=== PATIENT | female | born 1940 | race Caucasian/White ===

== ENCOUNTER → 2017-07-18 | Outpatient (CLI) | payer MEDICARE ==
--- NOTE | 2017-07-18 12:03 | REP ---
Duplex extremity venous ultrasound: Left lower extremity. History: Pain and swelling in the left leg. Question DVT. Findings: The deep veins are anechoic and fully compressible from the groin to the popliteal fossa in the left lower extremity. Color flow imaging is homogeneous. Spectral Doppler interrogation demonstrates intact respiratory variation in flow and normal manual augmentation of flow. There is no evidence of deep vein thrombosis. Impression: Negative left lower extremity duplex venous ultrasound. No evidence of deep vein thrombosis. Signed by Sergei Bazan MD 07/18/2017 11:55 A
== END ==
LOC: M RAD 11:23
PROVIDERS: ATTEND Family Medicine
DX: M79.662 Pain in left lower leg (principal); M79.89 Other specified soft tissue disorders

== ENCOUNTER → 2018-01-30 | Outpatient (CLI) | payer MEDICARE ==
[2018-01-30 09:48] LABS: HEMATOCRIT 41.2 % (36.0-47.0); HEMOGLOBIN 13.5 g/dl (12.0-16.0); MEAN CORPUSCULAR HEMOGLOBIN 30.8 pg (27.0-33.0); MEAN CORPUSCULAR HGB CONC 32.8 g/dl (32.0-36.5); MEAN CORPUSCULAR VOLUME 93.8 fl (80.0-96.0); PLATELET COUNT, AUTOMATED 202 10^3/uL (150-450); RED BLOOD COUNT 4.39 10^6/uL (4.00-5.40); RED CELL DISTRIBUTION WIDTH 12.4 % (11.5-14.5); WHITE BLOOD COUNT 5.2 10^3/uL (4.0-10.0)
[2018-01-30 09:52] LABS: APPEARANCE, URINE TURBID (CLEAR); BACTERIA, URINE AUTO 3+ (NEGATIVE); BILIRUBIN, URINE AUTO NEGATIVE (NEGATIVE); BLOOD, URINE BLOOD 3+ (NEGATIVE); COLOR, URINE YELLOW (YELLOW); GLUCOSE, URINE (UA) AUTO NEGATIVE (NEGATIVE); KETONE, URINE AUTO NEGATIVE (NEGATIVE); LEUKOCYTE ESTERASE, URINE AUTO 3+ (NEGATIVE); NITRITE, URINE AUTO NEGATIVE (NEGATIVE); PROTEIN, URINE AUTO 2+ mg/dL (NEGATIVE); RBC, URINE AUTO 182 /HPF (0-3); SPECIFIC GRAVITY URINE AUTO 1.005 (1.002-1.035); SQUAMOUS EPITHELIAL CELL UR AU 0 /HPF (0-6); UROBILINOGEN, URINE AUTO 0.2 mg/dL (0.0-2.0); WBC, URINE AUTO TNTC /HPF (0-3)
[2018-01-30 10:12] LABS: ESTIMATED AVERAGE GLUCOSE 126 MG/DL (60-110)
[2018-01-30 10:37] LABS: ALBUMIN 3.6 GM/DL (3.2-5.2); ALKALINE PHOSPHATASE 65 U/L (45-117); ALT/SGPT 20 U/L (12-78); ANION GAP 9 MEQ/L (8-16); AST/SGOT 12 U/L (7-37); BILIRUBIN,TOTAL 0.5 MG/DL (0.2-1.0); BLOOD UREA NITROGEN 16 MG/DL (7-18); CARBON DIOXIDE LEVEL 26 MEQ/L (21-32); CHLORIDE LEVEL 109 MEQ/L (98-107); CHOLESTEROL LEVEL 163 MG/DL (<200); CREATININE FOR GFR 0.93 MG/DL (0.55-1.30); GLOMERULAR FILTRATION RATE > 60.0 (>39); GLUCOSE, FASTING 109 MG/DL (70-100); HDL CHOLESTEROL 50 MG/DL (>40); LDL CHOLESTEROL 72.2 MG/DL (<100); NON-HDL-C 113 MG/DL; POTASSIUM SERUM 4.4 MEQ/L (3.5-5.1); SODIUM LEVEL 144 MEQ/L (136-145); TOTAL PROTEIN 6.6 GM/DL (6.4-8.2); TRIGLYCERIDES LEVEL 204 MG/DL (<150)
[2018-01-30 10:52] LABS: TOTAL 25(OH) VITAMIN D 24.1 NG/ML (30.0-100.0)
== END ==
LOC: M LAB 09:03
DX: D64.9 Anemia, unspecified (principal); R53.83 Other fatigue; E03.9 Hypothyroidism, unspecified
CPT/HCPCS: 84443

== ENCOUNTER → 2018-05-04 | Outpatient (CLI) | payer MEDICARE ==
[2018-05-04 09:08] LABS: HEMATOCRIT 41.2 % (36.0-47.0); HEMOGLOBIN 13.6 g/dl (12.0-15.5); MEAN CORPUSCULAR HEMOGLOBIN 31.1 pg (27.0-33.0); MEAN CORPUSCULAR VOLUME 94.1 fl (80.0-96.0); PLATELET COUNT, AUTOMATED 203 10^3/uL (150-450); RED BLOOD COUNT 4.38 10^6/uL (4.00-5.40); RED CELL DISTRIBUTION WIDTH 12.1 % (11.5-14.5); WHITE BLOOD COUNT 4.8 10^3/uL (4.0-10.0)
[2018-05-04 09:28] LABS: INR 0.96; PROTHROMBIN TIME 12.9 SECONDS (12.4-14.5)
[2018-05-04 09:35] LABS: ALBUMIN 3.4 GM/DL (3.2-5.2); ALBUMIN/GLOBULIN RATIO 0.97 (1.00-1.93); ALKALINE PHOSPHATASE 64 U/L (45-117); ALT/SGPT 23 U/L (12-78); ANION GAP 10 MEQ/L (8-16); AST/SGOT 12 U/L (7-37); BILIRUBIN,TOTAL 0.4 MG/DL (0.2-1.0); BLOOD UREA NITROGEN 22 MG/DL (7-18); CALCIUM LEVEL 8.9 MG/DL (8.8-10.2); CARBON DIOXIDE LEVEL 26 MEQ/L (21-32); CHLORIDE LEVEL 109 MEQ/L (98-107); CHOLESTEROL LEVEL 151 MG/DL (<200); CHOLESTEROL RISK RATIO 2.696 (<5); CREATININE FOR GFR 0.98 MG/DL (0.55-1.30); GLOMERULAR FILTRATION RATE 58.4 (>39); GLUCOSE, FASTING 116 MG/DL (70-100); HDL CHOLESTEROL 56 MG/DL (>40); LDL CHOLESTEROL 59.6 MG/DL (<100); NON-HDL-C 95 MG/DL; POTASSIUM SERUM 4.3 MEQ/L (3.5-5.1); SODIUM LEVEL 145 MEQ/L (136-145); TOTAL PROTEIN 6.9 GM/DL (6.4-8.2); TRIGLYCERIDES LEVEL 177 MG/DL (<150)
[2018-05-04 10:15] LABS: ESTIMATED AVERAGE GLUCOSE 120 MG/DL (60-110); HEMOGLOBIN A1c 5.8 %
== END ==
LOC: M LAB 08:10
DX: Z01.818 Encounter for other preprocedural examination (principal); I10 Essential (primary) hypertension; E11.9 Type 2 diabetes mellitus without complications; Z79.01 Long term (current) use of anticoagulants
CPT/HCPCS: 71046

== ENCOUNTER → 2018-09-03 | Outpatient (CLI) | payer MEDICARE ==
[2018-09-03 10:38] LABS: HEMATOCRIT 39.6 % (36.0-47.0); HEMOGLOBIN 13.2 g/dl (12.0-15.5); MEAN CORPUSCULAR HEMOGLOBIN 31.7 pg (27.0-33.0); MEAN CORPUSCULAR HGB CONC 33.3 g/dl (32.0-36.5); PLATELET COUNT, AUTOMATED 206 10^3/uL (150-450); RED BLOOD COUNT 4.17 10^6/uL (4.00-5.40); RED CELL DISTRIBUTION WIDTH 12.7 % (11.5-14.5); WHITE BLOOD COUNT 5.1 10^3/uL (4.0-10.0)
[2018-09-03 10:52] LABS: INR 1.02; PROTHROMBIN TIME 13.5 SECONDS (12.1-14.4)
[2018-09-03 11:03] LABS: ESTIMATED AVERAGE GLUCOSE 123 MG/DL (60-110); HEMOGLOBIN A1c 5.9 %
[2018-09-03 11:17] LABS: ALBUMIN 3.3 GM/DL (3.2-5.2); ALBUMIN/GLOBULIN RATIO 1.06 (1.00-1.93); ALKALINE PHOSPHATASE 60 U/L (45-117); ALT/SGPT 21 U/L (12-78); ANION GAP 7 MEQ/L (8-16); AST/SGOT 11 U/L (7-37); BILIRUBIN,TOTAL 0.4 MG/DL (0.2-1.0); BLOOD UREA NITROGEN 12 MG/DL (7-18); CALCIUM LEVEL 9.1 MG/DL (8.8-10.2); CARBON DIOXIDE LEVEL 28 MEQ/L (21-32); CHLORIDE LEVEL 109 MEQ/L (98-107); CHOLESTEROL LEVEL 150 MG/DL (<200); CREATININE FOR GFR 0.91 MG/DL (0.55-1.30); GLOMERULAR FILTRATION RATE > 60.0 (>39); GLUCOSE, FASTING 120 MG/DL (70-100); HDL CHOLESTEROL 46 MG/DL (>40); LDL CHOLESTEROL 52 MG/DL (<100); NON-HDL-C 104 MG/DL; POTASSIUM SERUM 4.3 MEQ/L (3.5-5.1); SODIUM LEVEL 144 MEQ/L (136-145); TOTAL PROTEIN 6.4 GM/DL (6.4-8.2); TRIGLYCERIDES LEVEL 259 MG/DL (<150)
== END ==
LOC: M LAB 10:04
DX: Z01.818 Encounter for other preprocedural examination (principal); E11.9 Type 2 diabetes mellitus without complications; I10 Essential (primary) hypertension; R94.31 Abnormal electrocardiogram [ECG] [EKG]; Z79.01 Long term (current) use of anticoagulants
CPT/HCPCS: 71046

== ENCOUNTER → 2018-10-17 | Outpatient (CLI) | payer MEDICARE ==
[2018-10-17 10:36] LABS: HEMATOCRIT 40.6 % (36.0-47.0); MEAN CORPUSCULAR VOLUME 96.7 fl (80.0-96.0); PLATELET COUNT, AUTOMATED 208 10^3/uL (150-450); RED CELL DISTRIBUTION WIDTH 12.7 % (11.5-14.5)
[2018-10-17 10:48] LABS: INR 0.98; PROTHROMBIN TIME 13.1 SECONDS (12.1-14.4)
[2018-10-17 11:17] LABS: ALBUMIN 3.3 GM/DL (3.2-5.2); ALBUMIN/GLOBULIN RATIO 0.94 (1.00-1.93); ALKALINE PHOSPHATASE 65 U/L (45-117); ALT/SGPT 26 U/L (12-78); ANION GAP 7 MEQ/L (8-16); AST/SGOT 15 U/L (7-37); BILIRUBIN,TOTAL 0.4 MG/DL (0.2-1.0); BLOOD UREA NITROGEN 17 MG/DL (7-18); CALCIUM LEVEL 9.2 MG/DL (8.8-10.2); CARBON DIOXIDE LEVEL 28 MEQ/L (21-32); CHLORIDE LEVEL 108 MEQ/L (98-107); CHOLESTEROL LEVEL 170 MG/DL (<200); CHOLESTEROL RISK RATIO 3.269 (<5); CREATININE FOR GFR 0.96 MG/DL (0.55-1.30); GLOMERULAR FILTRATION RATE 59.7 (>39); GLUCOSE, FASTING 128 MG/DL (70-100); HDL CHOLESTEROL 52 MG/DL (>40); LDL CHOLESTEROL 79 MG/DL (<100); NON-HDL-C 118 MG/DL; SODIUM LEVEL 143 MEQ/L (136-145); TOTAL PROTEIN 6.8 GM/DL (6.4-8.2); TRIGLYCERIDES LEVEL 196 MG/DL (<150)
[2018-10-17 11:25] LABS: ESTIMATED AVERAGE GLUCOSE 128 MG/DL (60-110); HEMOGLOBIN A1c 6.1 %
== END ==
LOC: M LAB 09:11
DX: Z01.818 Encounter for other preprocedural examination (principal); I10 Essential (primary) hypertension; E11.9 Type 2 diabetes mellitus without complications; R94.31 Abnormal electrocardiogram [ECG] [EKG]
CPT/HCPCS: 71046

== ENCOUNTER → 2021-01-15 | Outpatient (CLI) | payer MEDICARE ==
[~2021-01-15] MED LIST: ISOVUE-370 76% 100ML VIAL As Ordered ONE
--- NOTE | 2021-01-19 13:29 | REP ---
INDICATION: MALIGNANT NEOPLASM OF BLADDER, UNSPECIFIED. COMPARISON: 05/11/2019, [facility]. TECHNIQUE: CT chest performed following the intravenous administration of 100 cc of Isovue 370. Sagittal and coronal reconstruction images are performed. FINDINGS: Lungs: Clear, no infiltrate or nodule. Once again there is scattered interstitial fibrotic scarring, mild pleural thickening and scattered blebs, stable. Mediastinum: No adenopathy. Ladi: No adenopathy. Axilla: No adenopathy. Pleura: No effusion. Heart: Not enlarged, upper limits of normal in size.. Thoracic aorta: No aneurysm or dissection. There are scattered atherosclerotic calcifications. Visualized osseous structures: There are degenerative changes of the spine without compression deformity. IMPRESSION: No suspicious pulmonary nodule. No acute infiltrate. Chronic fibrotic changes. <Electronically signed by Saurabh Whitlock > 01/19/21 [id number]
--- NOTE | 2021-01-19 13:42 | REP ---
INDICATION: MALIGNANT NEOPLASM OF BLADDER, UNSPECIFIED COMPARISON: 06/16/2020 as well as other prior exams. TECHNIQUE: CT Scan of the abdomen and pelvis was performed with intravenous administration of 100 cc of Isovue 370, and oral contrast. FINDINGS: Lung bases: There is a small hiatal hernia. Liver: There is a stable cystic structure inferiorly in the posterior segment of the right lobe, measuring 1.5 cm in maximum diameter. Gallbladder: Unremarkable. Spleen: Normal. Adrenals: Normal. Pancreas: Normal. Kidneys: Normal. There is no hydroureteronephrosis. Small and large bowel: There is sigmoid diverticulosis without acute diverticulitis.. Free fluid: None. Abdominal aorta: No aneurysm or dissection. Adenopathy: None. Appendix: Not inflamed. Osseous structures: There are degenerative changes of the spine without compression deformity.. Pelvis: No mass. There has been prior cystectomy and hysterectomy. 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 IMPRESSION: Postsurgical changes with no new mass or adenopathy. No change since prior study. <Electronically signed by Saurabh Whitlock > 01/19/21 [id number]
== END ==
LOC: M RAD 16:16
PROVIDERS: ATTEND Urology
DX: C67.9 Malignant neoplasm of bladder, unspecified (principal)
CPT/HCPCS: 71260; 74177; Q9967

== ENCOUNTER → 2021-05-12 | Outpatient (CLI) | payer MEDICARE ==
[~2021-05-12] MED LIST changes: +GASTROGRAFIN SOLUTION 30ML (Q9963) As Ordered ONE; -ISOVUE-370 76% 100ML VIAL As Ordered ONE
--- NOTE | 2021-05-12 15:41 | REP ---
INDICATION: ENTEROCOLITIS D/T CLOSTRIDIUM DIFFICILE. COMPARISON: 01/15/2021 latest prior TECHNIQUE: Limited noncontrast enhanced standard helical technique after the administration of oral bowel preparatory contrast only. FINDINGS: There is no significant change in appearance of the lung bases. Limited evaluation of the solid intraabdominal organs and gallbladder show no gross abnormalities or significant changes from the prior exam. Limited evaluation of the pancreas, adrenal glands, and kidneys show no gross abnormalities or significant changes from the prior exam. Limited evaluation of the abdominal aorta and para-aortic regions show no gross abnormalities or significant changes from the prior exam. There is no free fluid or free air. There is no mass or adenopathy. The bowel loops and the mesenteries have not changed significantly compared to the prior exam. No gross abnormality is noted. Note is again made of an ileal conduit on the right status quo. Bone window technique throughout the exam shows stable appearing chronic osseous changes. IMPRESSION: No evidence of acute disease or significant change compared to the prior exam with findings as described above. <Electronically signed by Faustino Romero > 05/12/21 [id number]
== END ==
LOC: M RAD 13:23
PROVIDERS: ATTEND Family Medicine
DX: A04.72 Enterocolitis due to Clostridium difficile, not specified as recurrent (principal)
CPT/HCPCS: 74176; Q9963

== ENCOUNTER → 2021-07-13 | Outpatient (CLI) | payer MEDICARE ==
[2021-07-13 17:15] LABS: HEMATOCRIT 35.3 % (36.0-47.0); HEMOGLOBIN 11.3 g/dl (12.0-15.5); PLATELET COUNT, AUTOMATED 212 10^3/uL (150-450); RED BLOOD COUNT 3.64 10^6/uL (4.00-5.40); WHITE BLOOD COUNT 5.9 10^3/uL (4.0-10.0)
[2021-07-13 17:29] LABS: ALBUMIN 3.7 GM/DL (3.2-5.2); BILIRUBIN,TOTAL 0.2 MG/DL (0.2-1.0); CALCIUM LEVEL 9.9 MG/DL (8.8-10.2); CREATININE FOR GFR 1.66 MG/DL (0.55-1.30); GLOMERULAR FILTRATION RATE 31.6 (>32); TOTAL PROTEIN 7.5 GM/DL (6.4-8.2)
== END ==
LOC: M LAB 15:23
PROVIDERS: ATTEND Urology
DX: C67.9 Malignant neoplasm of bladder, unspecified (principal)

== ENCOUNTER → 2021-07-19 | Outpatient (CLI) | payer MEDICARE ==
[~2021-07-19] MED LIST changes: -GASTROGRAFIN SOLUTION 30ML (Q9963) As Ordered ONE; +ISOVUE-370 76% 100ML VIAL As Ordered ONE
--- NOTE | 2021-07-19 17:54 | REP ---
INDICATION: BLADDER CA. COMPARISON: 01/15/2021. TECHNIQUE: CT chest performed following the intravenous administration of 100 cc of Isovue 370. Sagittal and coronal reconstruction images are performed. FINDINGS: Lungs: Clear, no infiltrate or nodule. Mediastinum: No adenopathy. Ladi: No adenopathy. Axilla: No adenopathy. Pleura: No effusion. Heart: Not enlarged. Thoracic aorta: No aneurysm or dissection. Visualized osseous structures: There are degenerative changes of the spine without compression deformity. IMPRESSION: Unremarkable CT chest. <Electronically signed by Saurabh Whitlock > 07/19/21 [id number]
--- NOTE | 2021-07-19 18:26 | REP ---
INDICATION: BLADDER CA COMPARISON: 05/12/2021. TECHNIQUE: CT Scan of the abdomen and pelvis was performed with intravenous administration of 100 cc of Isovue 370, and oral contrast. Sagittal and coronal reconstruction images are performed. FINDINGS: Lung bases: There is a small hiatal hernia. Liver: There is a stable cystic structure inferiorly in the right lobe of the liver. Gallbladder: Unremarkable. Spleen: Normal. Adrenals: Normal. Pancreas: Normal. Kidneys: Normal. Right ileal conduit is unchanged in appearance. There is no hydroureteronephrosis. Small and large bowel: There is sigmoid diverticulosis without acute diverticulitis. Free fluid: None. Abdominal aorta: No aneurysm or dissection. Adenopathy: There is no periaortic adenopathy. Appendix: Not inflamed. Osseous structures: There are degenerative changes of the spine without compression deformity. Pelvis: There is an oval bilobed right pelvic mass measuring 3.9 x 2.3 x 2.3 cm.. There has been prior cystectomy and hysterectomy. IMPRESSION: Oval bilobed right pelvic mass measuring 3.9 x 2.3 x 2.3 cm. This is suspicious for tumor recurrence. <Electronically signed by Saurabh Whitlock > 07/19/21 [id number]
== END ==
LOC: M RAD 15:57
PROVIDERS: ATTEND Urology
DX: R19.09 Other intra-abdominal and pelvic swelling, mass and lump (principal); K44.9 Diaphragmatic hernia without obstruction or gangrene; K76.89 Other specified diseases of liver; K57.92 Diverticulitis of intestine, part unspecified, without perforation or abscess without bleeding; Z90.710 Acquired absence of both cervix and uterus; Z90.6 Acquired absence of other parts of urinary tract
CPT/HCPCS: 71260; 74177; Q9967

== ENCOUNTER → 2021-08-18 | Outpatient (CLI) | payer MEDICARE ==
[~2021-08-18] MED LIST changes: -ISOVUE-370 76% 100ML VIAL As Ordered ONE; +PROHANCE 279.3MG/ML 5ML VIAL ONE
--- NOTE | 2021-08-18 15:45 | REP ---
INDICATION: BLADDER CA. Pelvic mass. Most recent CT reported a 3.9 x 2.3 x 2.3 cm bilobed right pelvic mass. COMPARISON: Comparison CT study abdomen and pelvis July 19, 2021. TECHNIQUE: Axial, sagittal, and coronal imaging planes are included. T1 and T2 weighted sequences include spin echo, fast spin echo, inversion recovery sequences and post gadolinium enhanced images. Gadolinium enhancement dose is 8 mL of intravenous ProHance. FINDINGS: Cortical and medullary bone signal intensity are normal in the pelvis. There is no evidence of ascites. The urinary bladder and the uterus is surgically absent. I am not aware of the surgical history guarding the ovaries. No left ovary can be seen. The 3.9 cm bilobed appearing mass seen in the pelvis on recent CT study is seen by MR. It appears to be cystic displaying relatively low T1 and high T2 signal intensity. There is a fluid fluid level in the posterior portion of the largest component of this lesion suggesting proteinaceous contents. There is contrast enhancement in the margin of this bilobed appearing lesion. this measures 3.4 cm in craniocaudal span by 2.0 cm right to left by 1.6 cm anterior to posterior. No other mass or adenopathy is appreciated. A portion of the right lower quadrant ileostomy is seen at the top of the imaging field of view. There is sigmoid colon diverticulosis without MR evidence of diverticulitis. IMPRESSION: There is a small complex cystic lesion in the right pelvis adjacent to bowel loop and along the internal iliac vessels. Possibilities include necrotic malignant adenopathy and residual ovarian cyst tissue with follicle cyst formation. <Electronically signed by Juan Bazan > 08/18/21 [id number]
== END ==
LOC: M PLAIMG 12:17
PROVIDERS: ATTEND Urology
DX: R19.00 Intra-abdominal and pelvic swelling, mass and lump, unspecified site (principal)
CPT/HCPCS: 72197; A9576

== ENCOUNTER → 2022-06-07 | Outpatient (CLI) | payer MEDICARE ==
[2022-06-07 11:25] LABS: CREATININE FOR GFR 1.55 MG/DL (0.55-1.30); GLOMERULAR FILTRATION RATE 34.1 (>32)
== END ==
LOC: M LAB 10:39
PROVIDERS: ATTEND Physician Assistant
DX: C67.9 Malignant neoplasm of bladder, unspecified (principal)

== ENCOUNTER → 2022-06-10 | Outpatient (CLI) | payer MEDICARE ==
[~2022-06-10] MED LIST changes: +GASTROGRAFIN SOLUTION 30ML (Q9963) As Ordered ONE; +ISOVUE-370 76% 100ML VIAL As Ordered ONE; -PROHANCE 279.3MG/ML 5ML VIAL ONE
== END ==
LOC: M RAD 12:24
DX: C67.9 Malignant neoplasm of bladder, unspecified (principal); Z90.6 Acquired absence of other parts of urinary tract; R93.2 Abnormal findings on diagnostic imaging of liver and biliary tract; M41.25 Other idiopathic scoliosis, thoracolumbar region; M41.26 Other idiopathic scoliosis, lumbar region; I70.0 Atherosclerosis of aorta; K44.9 Diaphragmatic hernia without obstruction or gangrene; D73.4 Cyst of spleen; Z98.0 Intestinal bypass and anastomosis status; Z93.6 Other artificial openings of urinary tract status; Z93.3 Colostomy status
CPT/HCPCS: 74177; Q9963; Q9967

== ENCOUNTER → 2022-11-28 | Outpatient (CLI) | payer MEDICARE ==
[2022-11-28 15:29] LABS: CREATININE FOR GFR 1.68 MG/DL (0.55-1.30)
== END ==
LOC: M LAB 14:18
PROVIDERS: ATTEND Physician Assistant
DX: C67.9 Malignant neoplasm of bladder, unspecified (principal)

== ENCOUNTER → 2022-12-02 | Outpatient (CLI) | payer MEDICARE ==
[~2022-12-02] MED LIST changes: -GASTROGRAFIN SOLUTION 30ML (Q9963) As Ordered ONE; +GASTROGRAFIN SOLUTION 30ML As Ordered ONE
== END ==
LOC: M RAD 13:16
DX: C67.9 Malignant neoplasm of bladder, unspecified (principal)
CPT/HCPCS: 74177; Q9963; Q9967

== ENCOUNTER 2023-01-06 09:42 | Emergency (ER) | payer MEDICARE ==
[~2023-01-06] VITALS: Ht 170.2 cm; Wt 58.0 kg
[2023-01-06] MEDS ORDERED: ATOR1TAB21 (09:59)
[2023-01-06] MEDS ORDERED: LISI20TA33 (09:59)
[2023-01-06] MEDS ORDERED: OMEG100011 (09:59)
[2023-01-06] MEDS ORDERED: DOCU100C16 (09:59)
[2023-01-06] MEDS ORDERED: METO1TAB87 (09:59)
[2023-01-06] MEDS ORDERED: SODI650T (09:59)
[2023-01-06] MEDS ORDERED: LATA0.0015 (09:59)
[2023-01-06] MEDS ORDERED: FURO40TA2 (09:59)
[2023-01-06] MEDS ORDERED: IRON65TA2 (09:59)
[2023-01-06] MEDS ORDERED: FAMO20TA5 (09:59)
[2023-01-06] MEDS ORDERED: CALC1CAP31 (09:59)
[2023-01-06] MEDS ORDERED: LEVO100T5 (09:59)
[2023-01-06] MEDS ORDERED: NS 1,000 ML IV ONE (11:25)
[2023-01-06] MEDS ORDERED: ACETAMINOPHEN TAB 650MG DOSE (2X325MG) PO ONE (11:25)
[2023-01-06 13:01] LABS: BILIRUBIN,DIRECT 0.2 MG/DL (<0.4); BILIRUBIN,TOTAL 0.6 MG/DL (0.3-1.2); CREATININE FOR GFR 2.28 MG/DL (0.55-1.30); GLOMERULAR FILTRATION RATE 21.8 (>32); POTASSIUM SERUM 4.4 MMOL/L (3.5-5.1); TOTAL PROTEIN 6.7 G/DL (5.7-8.2)
[2023-01-06 13:22] LABS: BASO % 0.4 % (0.0-1.0); EOS % 0.1 % (0.0-3.0); HEMATOCRIT 27.3 % (36.0-47.0); HEMOGLOBIN 8.9 g/dl (12.0-15.5); LYMPH % 10.1 % (24.0-44.0); MEAN CORPUSCULAR HEMOGLOBIN 30.8 pg (27.0-33.0); MEAN CORPUSCULAR HGB CONC 32.6 g/dl (32.0-36.5); MEAN CORPUSCULAR VOLUME 94.5 fl (80.0-96.0); MONO # 0.7 10^3/uL (0.0-0.8); NEUTROPHILS # 7.9 10^3/uL (1.5-8.5); NEUTROPHILS % 81.8 % (36.0-66.0); PLATELET COUNT, AUTOMATED 159 10^3/uL (150-450); RED BLOOD COUNT 2.89 10^6/uL (4.00-5.40); WHITE BLOOD COUNT 9.7 10^3/uL (4.0-10.0)
[2023-01-06] MEDS ORDERED: cefTRIAXone SOD 1 GM in D5W MINI-BAG PLUS 50 ML IV ONE (14:00)
[2023-01-06] MEDS ORDERED: CEPH500C PO (14:58)
[2023-01-06 15:00] VITALS: BP 113/54
[2023-01-06] MEDS ORDERED: SODIUM CHLORIDE 0.9% INJ 10 ML SYR IV PRN (15:00)
== END 2023-01-06 15:31 | disposition home or self-care (01) ==
LOC: M ED 09:42
DX: N39.0 Urinary tract infection, site not specified (principal); I51.9 Heart disease, unspecified; I10 Essential (primary) hypertension; E07.9 Disorder of thyroid, unspecified; Z85.51 Personal history of malignant neoplasm of bladder; Z88.5 Allergy status to narcotic agent; Z91.89 Other specified personal risk factors, not elsewhere classified
CPT/HCPCS: 71045; 80048; 80076; 81001; 83605; 85025; 87040; 87086; 87486; 87581; 87633; 87798; 93041; 94760; 96361; 96365; 99284; J0696

== ENCOUNTER → 2023-01-30 | Outpatient (CLI) | payer MEDICARE ==
[~2023-01-30] MED LIST changes: +ATOR1TAB21; +CALC1CAP31; +CEPH500C PO; +DOCU100C16; +FAMO20TA5; +FURO40TA2; -GASTROGRAFIN SOLUTION 30ML As Ordered ONE; +IRON65TA2; -ISOVUE-370 76% 100ML VIAL As Ordered ONE; +LATA0.0015; +LEVO100T5; +LISI20TA33; +METO1TAB87; +OMEG100011; +SODI650T
== END ==
LOC: M PLARAD 09:55
DX: C67.9 Malignant neoplasm of bladder, unspecified (principal); N13.30 Unspecified hydronephrosis
CPT/HCPCS: 78815; A9552

== ENCOUNTER → 2023-02-15 | Outpatient (CLI) | payer MEDICARE | LOC: M RAD 15:32 | PROVIDERS: ATTEND Physician Assistant | DX: C67.9 Malignant neoplasm of bladder, unspecified (principal); N13.30 Unspecified hydronephrosis ==

== ENCOUNTER 2023-05-12 20:55 | Inpatient (IN) | payer MEDICARE ==
[~2023-05-12] VITALS: Ht 167.6 cm; Wt 87.9 kg
[~2023-05-12 20:55] MED LIST changes: -ATOR1TAB21; +ATOR1TAB21 PO; -CALC1CAP31; +CALC1CAP31 PO; -FAMO20TA5; +FAMO20TA5 PO; -FURO40TA2; +FURO40TA2 PO; -LEVO100T5; +LEVO100T5 PO; -LISI20TA33; +LISI20TA33 PO; -METO1TAB87; +METO1TAB87 PO; -SODI650T; +SODI650T PO
[2023-05-12] MEDS ORDERED: INSULIN LISPRO (NovoLOG) PER UNIT SC SCH (21:00)
[2023-05-12 21:41] VITALS: BP 104/55; TEMP 97.6; O2SAT 98
[2023-05-12] MEDS ORDERED: DEXTROSE 50% 50ML SYRINGE IV PRN (22:15)
[2023-05-12] MEDS ORDERED: GLUCOSE 4GM CHEW TABLET PO PRN (22:15)
[2023-05-12] MEDS ORDERED: GLUCAGON INJ 1MG VIAL SC PRN (22:15)
[2023-05-12 22:48] LABS: HEMATOCRIT 27.6 % (36.0-47.0); MEAN CORPUSCULAR HEMOGLOBIN 30.9 pg (27.0-33.0); MEAN CORPUSCULAR HGB CONC 32.6 g/dl (32.0-36.5); MEAN CORPUSCULAR VOLUME 94.8 fl (80.0-96.0); PLATELET COUNT, AUTOMATED 142 10^3/uL (150-450); RED BLOOD COUNT 2.91 10^6/uL (4.00-5.40); WHITE BLOOD COUNT 4.2 10^3/uL (4.0-10.0)
[2023-05-12] MEDS ORDERED: NS 500 ML IV SCH (23:05)
[2023-05-12 23:10] VITALS: BP 144/63; TEMP 97.2; O2SAT 98
[2023-05-12 23:24] LABS: CPK CREATINE PHOSPHOKINASE 54 U/L (34-145)
[2023-05-12 23:35] LABS: ALBUMIN 3.2 G/DL (3.2-5.2); ALKALINE PHOSPHATASE 84 U/L (46-116); ALT/SGPT 16 U/L (7.0-40); AST/SGOT < 8 U/L (<34); BILIRUBIN,TOTAL 0.3 MG/DL (0.3-1.2); BLOOD UREA NITROGEN 89 MG/DL (9-23); CARBON DIOXIDE LEVEL 11 MMOL/L (20-31); CHLORIDE LEVEL 121 MMOL/L (98-107); CREATININE FOR GFR 2.16 MG/DL (0.55-1.30); GLOMERULAR FILTRATION RATE 23.2 (>32); GLUCOSE, FASTING 95 MG/DL (74-106); MB/CK RELATIVE INDEX 5.55 (< OR =4); POTASSIUM SERUM 4.8 MMOL/L (3.5-5.1); SODIUM LEVEL 141 MMOL/L (136-145)
[2023-05-12 23:51] LABS: CALCIUM LEVEL 9.2 MG/DL (8.3-10.6)
[2023-05-13] MEDS ORDERED: ACETAMINOPHEN TAB 650MG DOSE (2X325MG) PO ONE (00:05)
[2023-05-13 00:24] LABS: ABG BASE EXCESS -16.2 (-2.0-2.0); ABG HCO3 9.8 MMOL/L (22.0-26.0); ABG O2 SATURATION 97.8 % (95.0-99.0); ABG PARTIAL PRESSURE CO2 24.5 mmHg (35.0-45.0); ABG PARTIAL PRESSURE O2 123.1 mmHg (75.0-100.0); ABG TOTAL CO2 10.6 MMOL/L (23.0-31.0)
[2023-05-13 00:25] LABS: ABG pH (ARTERIAL) 7.222 UNITS (7.350-7.450)
[2023-05-13 00:30] LABS: CREATININE,RANDOM URINE 64.5 MG/DL
[2023-05-13] MEDS: SODIUM BICARBONATE 150 MEQ in D5W 1,000 ML IV SCH ×2 (00:49→15:52)
[2023-05-13] MEDS ORDERED: XALA0.007 OU (02:09)
[2023-05-13] MEDS ORDERED: HOME MED LIST COMPLETE! XX SCH (02:10)
[2023-05-13] MEDS ORDERED: MIRT-10 PO (02:10)
[2023-05-13 03:08] VITALS: BP 121/56; TEMP 97; O2SAT 98
[2023-05-13 05:13] LABS: HEMATOCRIT 28.4 % (36.0-47.0); HEMOGLOBIN 9.1 g/dl (12.0-15.5)
[2023-05-13 05:38] LABS: BLOOD UREA NITROGEN 88 MG/DL (9-23); CALCIUM LEVEL 9.4 MG/DL (8.3-10.6); CARBON DIOXIDE LEVEL 13 MMOL/L (20-31); CHLORIDE LEVEL 120 MMOL/L (98-107); CREATININE FOR GFR 2.12 MG/DL (0.55-1.30); GLOMERULAR FILTRATION RATE 23.7 (>32); GLUCOSE, FASTING 98 MG/DL (74-106); POTASSIUM SERUM 4.8 MMOL/L (3.5-5.1); SODIUM LEVEL 142 MMOL/L (136-145)
[2023-05-13] MEDS: LEVOTHYROXINE 100MCG TABLET (0.1MG) PO SCH (05:38)
[2023-05-13 05:41] LABS: FERRITIN 225.7 NG/ML (7.3-270.7)
[2023-05-13] MEDS ORDERED: INSULIN LISPRO (NovoLOG) PER UNIT SC SCH (07:30)
[2023-05-13 07:37] VITALS: BP 133/60; TEMP 97.8; O2SAT 98
[2023-05-13] MEDS: HEPARIN SOD (PORCINE) 5000UNITS/ML 1ML VIAL/SYRINGE SQ SCH ×2 (08:37→21:06)
[2023-05-13] MEDS: ATORVASTATIN 20 MG TAB PO SCH (08:37)
[2023-05-13] MEDS: METOPROLOL TART 25 MG TABLET PO SCH ×2 (08:37→21:05)
[2023-05-13] MEDS: CALCITRIOL 0.25 MCG CAP (S0169) PO SCH (08:37)
[2023-05-13 11:04] LABS: IRON (FE) 117 UG/DL (50-170); PERCENT SATURATION 50.9 % (13.2-45.0); TOTAL IRON BINDING CAPACITY 230 UG/DL (250-425)
[2023-05-13 11:05] LABS: FOLATE > 24.0 NG/ML (>5.4); VITAMIN B12 LEVEL 1098 PG/ML (211-911)
[2023-05-13 12:25] VITALS: BP 123/58; TEMP 97; O2SAT 99
[2023-05-13 18:56] LABS: CALCIUM LEVEL 8.1 MG/DL (8.3-10.6); CREATININE FOR GFR 1.63 MG/DL (0.55-1.30); GLOMERULAR FILTRATION RATE 32.1 (>32); POTASSIUM SERUM 4.6 MMOL/L (3.5-5.1)
[2023-05-13 20:10] VITALS: BP 119/75; TEMP 97.9; O2SAT 98
[2023-05-13] MEDS ORDERED: LATANOPROST 0.005% OPHTH SOLN 2.5 ML OU SCH (21:00)
[2023-05-13 22:25] LABS: PROTEIN, URINE AUTO TRACE mg/dL (NEGATIVE)
[2023-05-14] MEDS: SODIUM BICARBONATE 150 MEQ in D5W 1,000 ML IV SCH (03:20)
[2023-05-14 05:56] LABS: HEMATOCRIT 24.2 % (36.0-47.0); MEAN CORPUSCULAR HEMOGLOBIN 30.8 pg (27.0-33.0); MEAN CORPUSCULAR HGB CONC 33.1 g/dl (32.0-36.5); MEAN CORPUSCULAR VOLUME 93.1 fl (80.0-96.0); PLATELET COUNT, AUTOMATED 130 10^3/uL (150-450); WHITE BLOOD COUNT 3.2 10^3/uL (4.0-10.0)
[2023-05-14 06:00] VITALS: BP 131/48; TEMP 97.3; O2SAT 99
[2023-05-14] MEDS: LEVOTHYROXINE 100MCG TABLET (0.1MG) PO SCH (06:04)
[2023-05-14 06:29] LABS: CALCIUM LEVEL 7.6 MG/DL (8.3-10.6); CREATININE FOR GFR 1.47 MG/DL (0.55-1.30); GLOMERULAR FILTRATION RATE 36.1 (>32); MAGNESIUM LEVEL 1.8 MG/DL (1.8-2.4); POTASSIUM SERUM 3.6 MMOL/L (3.5-5.1)
[2023-05-14] MEDS ORDERED: POTASSIUM CHLORIDE 10MEQ SR TABLET PO ONE (09:00)
[2023-05-14] MEDS ORDERED: FUROSEMIDE 40 MG TAB PO SCH (09:00)
[2023-05-14] MEDS: CALCITRIOL 0.25 MCG CAP (S0169) PO SCH (09:06)
[2023-05-14] MEDS: HEPARIN SOD (PORCINE) 5000UNITS/ML 1ML VIAL/SYRINGE SQ SCH (09:06)
[2023-05-14 09:07] VITALS: BP 142/78
[2023-05-14] MEDS: ATORVASTATIN 20 MG TAB PO SCH (09:07)
[2023-05-14] MEDS ORDERED: ACETAMINOPHEN TAB 650MG DOSE (2X325MG) PO ONE (09:15)
[2023-05-14] MEDS ORDERED: METO1TAB32 PO (09:43)
[2023-05-14] MEDS ORDERED: FURO40TA2 PO (09:43)
[2023-05-14] MEDS ORDERED: MAGN400T2 PO (09:46)
[2023-05-14] MEDS ORDERED: MAGNESIUM OXIDE 400MG TAB (MAG-OX) PO ONE (09:50)
== END 2023-05-14 11:31 | disposition home health service (06) | DRG 683 ==
LOC: M PCU 21:08 → M MSPAV 05-13 20:07
PROVIDERS: ADMIT Internal Medicine; ATTEND Internal Medicine
DX: N17.9 Acute kidney failure, unspecified (principal); E87.20 Acidosis, unspecified; E87.5 Hyperkalemia; N18.32 Chronic kidney disease, stage 3b; E78.5 Hyperlipidemia, unspecified; E03.9 Hypothyroidism, unspecified; I12.9 Hypertensive chronic kidney disease with stage 1 through stage 4 chronic kidney disease, or unspecified chronic kidney disease; D63.1 Anemia in chronic kidney disease; R07.89 Other chest pain; I49.3 Ventricular premature depolarization; E86.0 Dehydration; I44.0 Atrioventricular block, first degree; R51.9 Headache, unspecified; E11.22 Type 2 diabetes mellitus with diabetic chronic kidney disease; Z79.890 Hormone replacement therapy; Z85.51 Personal history of malignant neoplasm of bladder; Z79.899 Other long term (current) drug therapy; Z88.8 Allergy status to other drugs, medicaments and biological substances; Z98.49 Cataract extraction status, unspecified eye; Z90.6 Acquired absence of other parts of urinary tract; Z91.048 Other nonmedicinal substance allergy status; Z20.822 Contact with and (suspected) exposure to COVID-19; Z93.6 Other artificial openings of urinary tract status

== ENCOUNTER → 2023-07-13 | Outpatient (CLI) | payer MEDICARE ==
[~2023-07-13] MED LIST changes: +MAGN400T2 PO; +METO1TAB32 PO; +MIRT-10 PO; +XALA0.007 OU
[2023-07-13 16:46] LABS: ALBUMIN 3.7 G/DL (3.2-5.2); BILIRUBIN,TOTAL 0.2 MG/DL (0.3-1.2); CALCIUM LEVEL 9.6 MG/DL (8.3-10.6); CREATININE FOR GFR 1.65 MG/DL (0.55-1.30); GLOMERULAR FILTRATION RATE 31.6 (>32); POTASSIUM SERUM 4.7 MMOL/L (3.5-5.1); TOTAL PROTEIN 7.8 G/DL (5.7-8.2)
== END ==
LOC: M LAB 15:54
PROVIDERS: ATTEND Physician Assistant Medical
DX: C67.9 Malignant neoplasm of bladder, unspecified (principal)

== ENCOUNTER → 2023-07-18 | Outpatient (CLI) | payer MEDICARE ==
[~2023-07-18] MED LIST changes: +GASTROGRAFIN SOLUTION 30ML As Ordered ONE; +ISOVUE-370 76% 100ML VIAL As Ordered ONE
== END ==
LOC: M RAD 13:45
PROVIDERS: ATTEND Physician Assistant
DX: C67.9 Malignant neoplasm of bladder, unspecified (principal); N13.39 Other hydronephrosis
CPT/HCPCS: 71260; 74177; Q9963; Q9967

== ENCOUNTER → 2024-03-11 | Outpatient (CLI) | payer MEDICARE ==
[~2024-03-11] MED LIST changes: -GASTROGRAFIN SOLUTION 30ML As Ordered ONE
== END ==
LOC: M RAD 13:41
PROVIDERS: ATTEND Nurse Practitioner Family
DX: C67.9 Malignant neoplasm of bladder, unspecified (principal); Z93.2 Ileostomy status

== ENCOUNTER → 2024-09-27 | Outpatient (REF) | payer MEDICARE ==
[~2024-09-27] MED LIST changes: -ISOVUE-370 76% 100ML VIAL As Ordered ONE
[2024-09-27 18:33] LABS: FREE T4 1.68 NG/DL (0.89-1.76)
[2024-09-30 08:06] LABS: THYROID STIMULATING HORMONE 1.958 uIU/ML (0.55-4.78)
== END ==
LOC: M LAB REF 17:12
PROVIDERS: ATTEND Internal Medicine Nephrology
DX: E03.9 Hypothyroidism, unspecified (principal)

== ENCOUNTER → 2025-11-06 | Outpatient (CLI) | payer MEDICARE ==
[~2025-11-06] MED LIST changes: +ISOVUE-370 76% 100 ML VIAL As Ordered ONE
== END ==
LOC: M RAD 17:01
PROVIDERS: ATTEND Nurse Practitioner
DX: C67.9 Malignant neoplasm of bladder, unspecified (principal); N13.30 Unspecified hydronephrosis; Z96.0 Presence of urogenital implants; R59.0 Localized enlarged lymph nodes; Z93.2 Ileostomy status
CPT/HCPCS: 74176; 82565; Q9967